=== PATIENT | female | born 2000 | race Caucasian/White ===

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

== ENCOUNTER 2022-07-25 01:51 | Emergency (ER) | payer BC ==
[2022-07-25] MEDS ORDERED: Acetaminophen 500 MG TAB ONE (02:23)
[2022-07-25] MEDS ORDERED: predniSONE 20 MG TAB ONE (02:23)
== END 2022-07-25 02:55 | disposition home or self-care (01) ==
LOC: CSHERS 01:51
DX: J06.9 Acute upper respiratory infection, unspecified (principal)
CPT/HCPCS: 87081; 87430; 99283; J7512